=== PATIENT | male | born 1935 | race Caucasian/White ===

== ENCOUNTER 2019-09-22 11:32 | Observation (INO) | payer MEDICARE ==
[~2019-09-22] VITALS: Ht 182.9 cm; Wt 76.8 kg
[2019-09-22] MEDS ORDERED: CHLORHEXIDINE 15 ML UDC MM STA (11:48)
[2019-09-22] MEDS ORDERED: CHLORHEXIDINE 15 ML UDC ONE (11:53)
[2019-09-22] MEDS ORDERED: ALFU10TA PO (11:53)
[2019-09-22] MEDS ORDERED: OXYB5TAB10 PO (12:00)
[2019-09-22] MEDS ORDERED: FLUO20CA23 PO (12:00)
[2019-09-22] MEDS ORDERED: TRIA1CAP3 PO (12:00)
[2019-09-22] MEDS ORDERED: FINA5TAB4 PO (12:00)
[2019-09-22] MEDS ORDERED: SULF1TAB24 PO (12:00)
[2019-09-22] MEDS ORDERED: NITR50CA11 PO (12:00)
[2019-09-22] MEDS ORDERED: DEXT10TA7 PO (12:00)
[2019-09-22] MEDS ORDERED: FLUO15CR2 TP (12:00)
[2019-09-22] MEDS ORDERED: ETOMIDATE 20 MG/10 ML ONE (12:02)
[2019-09-22] MEDS ORDERED: FENTANYL PF 100 MCG/2ML ONE ×2 (12:02→13:10)
[2019-09-22 12:04] VITALS: BP 148/80
[2019-09-22] MEDS ORDERED: LIDOCAINE-MPF 2% ,5ML ONE (12:20)
[2019-09-22] MEDS ORDERED: PROPOFOL 10 MG/ML, 20ML ONE (12:20)
[2019-09-22] MEDS ORDERED: CEFOTETAN 2 GM ONE (12:20)
[2019-09-22 12:25] LABS: BASOPHILS # (AUTO) 0.02 x10^3/uL (0-0.1); BASOPHILS % (AUTO) 0 % (0-1); EOSINOPHILS # (AUTO) 0.07 x10^3/uL (0-0.4); EOSINOPHILS % (AUTO) 1 % (1-7); LYMPHOCYTES # (AUTO) 1.07 x10^3/uL (1-3.4); LYMPHOCYTES % (AUTO) 21 % (22-44); MD NO; MEAN CORPUSCULAR HEMOGLOBIN 31.2 pg (27.5-34.5); MEAN CORPUSCULAR HGB CONC 33.6 g/dL (33.2-36.2); MEAN PLATELET VOLUME 6.9 fL (7.4-10.4); MONOCYTES # (AUTO) 0.59 x10^3/uL (0.2-0.8); MONOCYTES % (AUTO) 11 % (2-9); NEUTROPHILS # (AUTO) 3.43 x10^3/uL (1.8-6.8); NEUTROPHILS % (AUTO) 66 % (42-75); PLATELET COUNT 296 x10^3/uL (130-400); RED BLOOD COUNT 3.42 x10^6/uL (4.38-5.82); RED CELL DISTRIBUTION WIDTH 14.8 % (9.4-14.8)
[2019-09-22 12:28] LABS: ALBUMIN 3.3 g/dL (3.4-5.0); ANION GAP 7 mmol/L (5-15); CHLORIDE 107 mmol/L (98-107)
[2019-09-22 12:32] LABS: ALANINE AMINOTRANSFERASE 34 U/L (12-78); ALKALINE PHOSPHATASE 84 U/L (45-117); BILIRUBIN,TOTAL 0.6 mg/dL (0.2-1.0); TOTAL PROTEIN 7.8 g/dL (6.4-8.2)
[2019-09-22 12:34] LABS: MICROSCOPIC INDICATED
[2019-09-22 12:36] LABS: INTERNATIONAL NORMALIZED RATIO 0.94 (0.93-1.1)
[2019-09-22] MEDS ORDERED: HYDROmorphone 1 MG/ML, 1ML INJ IVPush PRN (13:00)
[2019-09-22] MEDS ORDERED: FENTANYL PF 100 MCG/2ML IV PRN (13:00)
[2019-09-22] MEDS ORDERED: HYDROcodone/APAP 7.5-325MG/15ML UDC PO PRN (13:00)
[2019-09-22] MEDS ORDERED: MEPERIDINE/PF 25MG/0.5ML IVPush PRN (13:00)
[2019-09-22] MEDS ORDERED: PROMETHAZINE 25 MG/ML, 1ML IVPush PRN (13:00)
[2019-09-22] MEDS ORDERED: OXYcodone/APAP 5/325MG TABLET PO PRN (14:00)
[2019-09-22] MEDS ORDERED: ONDANSETRON 2MG/ML, 2ML IV PRN (14:00)
[2019-09-22] MEDS: SULFAMETH./TRIMETHOPRIM DS 800MG/160MG TABLET PO SCH (19:54)
[2019-09-22 20:00] VITALS: BP 110/58
[2019-09-22] MEDS ORDERED: SULFAMETH./TRIMETHOPRIM DS 800MG/160MG TABLET PO SCH (21:00)
[2019-09-23 00:17] VITALS: BP 111/41
[2019-09-23 04:21] VITALS: BP 101/41
[2019-09-23 08:04] VITALS: BP 109/54
[2019-09-23] MEDS: SULFAMETH./TRIMETHOPRIM DS 800MG/160MG TABLET PO SCH (08:54)
[2019-09-23] MEDS ORDERED: OXYBUTYNIN CHLORIDE 5 MG TABLET PO SCH (09:00)
[2019-09-23] MEDS ORDERED: ALFUZOSIN 10 MG HOMEMEDPO SCH (09:00)
[2019-09-23] MEDS ORDERED: FINASTERIDE 5 MG TABLET PO SCH (09:00)
[2019-09-23] MEDS ORDERED: ADDERALL 10 MG HOMEMEDPO SCH (09:00)
[2019-09-23] MEDS ORDERED: TRIAMTERENE-HCTZ 37.5/25 MG TABLET PO SCH (09:00)
[2019-09-23] MEDS ORDERED: FLUOXETINE HCL 20 MG CAPSULE PO SCH (09:00)
[2019-09-23] MEDS ORDERED: FLUOCINONIDE 0.05% TP SCH (09:00)
[2019-09-23 12:52] VITALS: BP 123/55
== END 2019-09-23 15:15 | disposition home or self-care (01) ==
LOC: OUT 11:32 → ORIP 13:46 → 4NE 14:40
PROVIDERS: ADMIT Urology; ATTEND Urology
DX: N40.1 Benign prostatic hyperplasia with lower urinary tract symptoms (principal); I10 Essential (primary) hypertension; R33.8 Other retention of urine; Z03.818 Encounter for observation for suspected exposure to other biological agents ruled out; Z86.718 Personal history of other venous thrombosis and embolism; Z79.899 Other long term (current) drug therapy
CPT/HCPCS: 36415; 52601; 80053; 81001; 85025; 85610; 85730; 87077; 87086; 87186; 88305; 93005; C1769; G0378; J2704; J3010; J3490; U0001